=== PATIENT | female | born 1950 | race Caucasian/White ===

== ENCOUNTER 2017-12-17 00:03 | Observation (INO) | payer BC, MEDICARE ==
[2017-12-17] MEDS ORDERED: ASPIRIN 325 MG TAB PO STA (00:31)
--- NOTE | 2017-12-17 00:34 | ED ---
General Adult HPI - General Chief complaint: Chest Pain Stated complaint: htn, chest tightness Time Seen by Provider: 12/17/17 00:11 Source: patient, family, RN notes reviewed, old records reviewed Mode of arrival: ambulatory Limitations: no limitations - History of Present Illness Initial comments: 67-year-old female presenting for evaluation of chest pain. Patient states that that approximately 10 PM which is 2-1/2 hours prior to arrival patient developed chest tightness. This was while patient was at rest. She did report some nausea associated with tightness. No significant pain. No arm or shoulder pain. Patient did not vomit. She did not feel clammy or diaphoretic. She has no known history of CAD. She is a hypertensive diabetic. Patient's parents are , she states her father did have heart disease. She is a nonsmoker. Patient's discomfort and tightness is nearly resolved at the time my evaluation. - Related Data Home Medications Medication Instructions Recorded Confirmed Acetaminophen [Tylenol Arthritis] 1,300 mg PO BID 12/08/15 12/17/17 Albuterol Sulfate [Accuneb] 1.25 mg INHALATION RT-Q6H PRN 12/08/15 12/17/17 Aspirin [Adult Low Dose Aspirin EC] 81 mg PO DAILY 12/08/15 12/17/17 Atorvastatin Calcium [Lipitor] 10 mg PO HS 12/08/15 12/17/17 Biotin 1,000 mcg PO DAILY 12/08/15 12/17/17 Calcium Carbonate [Calcium] 600 mg PO BID 12/08/15 12/17/17 Cholecalciferol [Vitamin D3] 1,000 unit PO DAILY 12/08/15 12/17/17 Desloratadine [Clarinex] 5 mg PO DAILY 12/08/15 12/17/17 Fluticasone Nasal [place] [Flonase 2 spr EA NOSTRIL HS PRN 12/08/15 12/17/17 Nasal [place]] Glucosam/Ancelmo-Msm1/C/Gerardo/Bosw 1 tab PO BID 12/08/15 12/17/17 [Glucosamine-Chondroitin Tablet] Levalbuterol Tartrate [Xopenex Hfa 2 puff INHALATION RT-QID PRN 12/08/15 Inhaler] Losartan Potassium [Cozaar] 100 mg PO DAILY 12/08/15 12/17/17 Magnesium Oxide [Mag-Ox] 250 mg PO BID 12/08/15 12/17/17 Multivitamins, Thera [Multivitamin] 1 tab PO DAILY 12/08/15 12/17/17 [place]-3 Fatty Acids/Fish Oil [Fish 1 cap PO DAILY 12/08/15 12/17/17 Oil 1,000 mg Softgel] Ubidecarenone [Co Q-10] 100 mg PO DAILY 12/08/15 12/17/17 Vitamin B Complex 1 cap PO DAILY 12/08/15 12/17/17 metFORMIN HCL 1,000 mg PO BID 12/08/15 12/17/17 Warfarin [Coumadin] 2.5 mg PO DAILY 12/16/15 12/17/17 Warfarin [Coumadin] 7.5 mg PO ONCE 12/16/15 12/17/17 Previous Rx's Medication Instructions Recorded Docusate [Colace] 100 mg PO BID #60 capsule 12/19/15 HYDROcodone/APAP 7.5-325MG [[place] 1 - 2 each PO Q6H PRN #90 tab 12/19/15 7.5-325] Warfarin [Coumadin] 2.5 mg PO DAILY #1 tab 12/19/15 Allergies Allergy/AdvReac Type Severity Reaction Status Date / Time amlodipine besylate Allergy Severe "slow Verified 12/17/17 00:09 [From Lotrel] heart rate" benazepril HCl [From Lotrel] Allergy Severe "slow Verified 12/17/17 00:09 heart rate" levofloxacin [From Levaquin] Allergy Severe headache, Verified 12/17/17 00:09 palipitation celecoxib [From Celebrex] Allergy Chest Pain Verified 12/17/17 00:09 cephalexin monohydrate Allergy Rash/Hives Verified 12/17/17 00:09 [From Keflex] hydrochlorothiazide Allergy palpitations, Verified 12/17/17 00:09 low potassium NSAIDS (Non-Steroidal Allergy Chest Pain Verified 12/17/17 00:09 Anti-Inflamma Penicillins Allergy Rash/Hives Verified 12/17/17 00:09 acetaminophen [From [place]] AdvReac Severe impaction Verified 12/17/17 00:09 hydrocodone bitartrate AdvReac Severe impaction Verified 12/17/17 00:09 [From [place]] Review of Systems ROS Statement: Those systems with pertinent positive or pertinent negative responses have been documented in the HPI. ROS Other: All systems not noted in ROS Statement are negative. Past Medical History Additional Past Medical History / Comment(s): back pain History of Any Multi-Drug Resistant Organisms: None Reported Additional Past Surgical History / Comment(s): left breast biopsy, valeria carpal tunnel, valeria bunionectomy, valeria knee arthroscopy, rt total knee replacement, rods in back-laminectomy, TOTAL LEFT KNEE Past Psychological History: No Psychological Hx Reported Smoking Status: Never smoker Past Alcohol Use History: None Reported Past Drug Use History: None Reported General Exam Limitations: no limitations General appearance: alert, in no apparent distress Head exam: Present: atraumatic, normocephalic Eye exam: Present: normal appearance, PERRL ENT exam: Present: normal exam Neck exam: Present: normal inspection. Absent: tenderness, meningismus Respiratory exam: Present: normal lung sounds bilaterally. Absent: respiratory distress Cardiovascular Exam: Present: regular rate, normal rhythm GI/Abdominal exam: Present: soft. Absent: distended, tenderness, guarding, rebound Extremities exam: Present: normal inspection, full ROM, other (Distal pulses intact). Absent: tenderness Neurological exam: Present: alert, oriented X3, CN II-XII intact. Absent: motor sensory deficit Psychiatric exam: Present: normal affect, normal mood Skin exam: Present: warm, dry, intact. Absent: cyanosis, diaphoretic Course Vital Signs 12/17/17 00:05 Temperature 98.7 F Pulse Rate 102 H Respiratory 20 Rate Blood Pressure 146/81 O2 Sat by Pulse 99 Oximetry EKG Findings - EKG Comments: EKG Findings:: EKG: Normal sinus rhythm, rate of 91, NE interval 158, QRS duration 86, QTC 4:30, T waves are upright, there is no ST segment elevation or depression Medical Decision Making - Medical Decision Making 67-year-old female presenting with chest tightness and nausea. EKG is normal sinus with no definitive signs of ischemia. History is somewhat concerning and given the patient's risk factors she is placed in observation for serial enzymes and cardiology consultation. Laboratory studies in the emergency department, normal hemoglobin, white blood cell count mildly elevated at 12.4. Electrolytes are within normal limits. Initial troponin is negative. Chest x-ray negative for acute process. Diagnosis: Chest pain - Lab Data Result diagrams: 12/17/17 00:20 12/17/17 00:20 Lab Results 12/17/17 12/17/17 12/17/17 Range/Units 00:20 00:20 00:20 WBC 12.4 H (3.8-10.6) k/uL RBC 4.38 (3.80-5.40) m/uL Hgb 12.6 (11.4-16.0) gm/dL Hct 38.4 (34.0-46.0) % MCV 87.6 (80.0-100.0) fL MCH 28.8 (25.0-35.0) pg MCHC 32.8 (31.0-37.0) g/dL RDW 13.3 (11.5-15.5) % Plt Count 337 (150-450) k/uL Neutrophils % 71 % Lymphocytes % 18 % Monocytes % 6 % Eosinophils % 2 % Basophils % 1 % Neutrophils # 8.8 H (1.3-7.7) k/uL Lymphocytes # 2.2 (1.0-4.8) k/uL Monocytes # 0.7 (0-1.0) k/uL Eosinophils # 0.2 (0-0.7) k/uL Basophils # 0.1 (0-0.2) k/uL PT (9.0-12.0) sec INR (<1.2) APTT (22.0-30.0) sec Sodium 136 L (137-145) mmol/L Potassium 4.2 (3.5-5.1) mmol/L Chloride 100 (98-107) mmol/L Carbon Dioxide 23 (22-30) mmol/L Anion Gap 13 mmol/L BUN 21 H (7-17) mg/dL Creatinine 0.80 (0.52-1.04) mg/dL Est GFR (CKD-EPI)AfAm 90 (>60 ml/min/1.73 sqM) Est GFR (CKD-EPI)NonAf 78 (>60 ml/min/1.73 sqM) Glucose 121 H (74-99) mg/dL Calcium 9.3 (8.4-10.2) mg/dL Magnesium 2.0 (1.6-2.3) mg/dL Total Bilirubin 0.4 (0.2-1.3) mg/dL AST 25 (14-36) U/L ALT 42 (9-52) U/L Alkaline Phosphatase 73 (38-126) U/L Total Creatine Kinase 179 H (30-135) U/L CK-MB (CK-2) 2.9 H* (0.0-2.4) ng/mL CK-MB (CK-2) Rel Index 1.6 Troponin I <0.012 (0.000-0.034) ng/mL NT-Pro-B Natriuret Pep pg/mL Total Protein 6.6 (6.3-8.2) g/dL Albumin 4.6 (3.5-5.0) g/dL Lipase 162 (23-300) U/L 12/17/17 12/17/17 Range/Units 00:20 00:20 WBC (3.8-10.6) k/uL RBC (3.80-5.40) m/uL Hgb (11.4-16.0) gm/dL Hct (34.0-46.0) % MCV (80.0-100.0) fL MCH (25.0-35.0) pg MCHC (31.0-37.0) g/dL RDW (11.5-15.5) % Plt Count (150-450) k/uL Neutrophils % % Lymphocytes % % Monocytes % % Eosinophils % % Basophils % % Neutrophils # (1.3-7.7) k/uL Lymphocytes # (1.0-4.8) k/uL Monocytes # (0-1.0) k/uL Eosinophils # (0-0.7) k/uL Basophils # (0-0.2) k/uL PT 9.7 (9.0-12.0) sec INR 1.0 (<1.2) APTT 24.1 (22.0-30.0) sec Sodium (137-145) mmol/L Potassium (3.5-5.1) mmol/L Chloride (98-107) mmol/L Carbon Dioxide (22-30) mmol/L Anion Gap mmol/L BUN (7-17) mg/dL Creatinine (0.52-1.04) mg/dL Est GFR (CKD-EPI)AfAm (>60 ml/min/1.73 sqM) Est GFR (CKD-EPI)NonAf (>60 ml/min/1.73 sqM) Glucose (74-99) mg/dL Calcium (8.4-10.2) mg/dL Magnesium (1.6-2.3) mg/dL Total Bilirubin (0.2-1.3) mg/dL AST (14-36) U/L ALT (9-52) U/L Alkaline Phosphatase (38-126) U/L Total Creatine Kinase (30-135) U/L CK-MB (CK-2) (0.0-2.4) ng/mL CK-MB (CK-2) Rel Index Troponin I (0.000-0.034) ng/mL NT-Pro-B Natriuret Pep 42 pg/mL Total Protein (6.3-8.2) g/dL Albumin (3.5-5.0) g/dL Lipase (23-300) U/L Disposition Clinical Impression: Chest pain Disposition: ADMITTED IP TO THIS [facility] Condition: Stable Is patient prescribed a controlled substance at d/c from ED?: No Referrals: Silvia Rosado MD [Primary Care Provider] - 1-2 days Decision to Admit Reason: Admit from EC Decision Date: 12/17/17 Decision Time: 01:32
--- NOTE | 2017-12-17 00:42 | XR ---
EXAMINATION TYPE: XR chest 2V DATE OF EXAM: 12/17/2017 COMPARISON: NONE HISTORY: Chest tightness TECHNIQUE: Frontal and lateral views of the chest are obtained. FINDINGS: There is suboptimal inspiration. There is no heart failure nor confluent pneumonic infiltr ate. Costophrenic angles are clear. Bony thorax is intact. There are chest leads. IMPRESSION: No active cardiopulmonary disease.
[2017-12-17 00:47] LABS: Albumin 4.6 g/dL (3.5-5.0); Calcium 9.3 mg/dL (8.4-10.2); Partial Thromboplastin Time 24.1 sec (22.0-30.0); Potassium 4.2 mmol/L (3.5-5.1); Prothrombin Time 9.7 sec (9.0-12.0); Total Bilirubin 0.4 mg/dL (0.2-1.3); Total Protein 6.6 g/dL (6.3-8.2)
[2017-12-17 00:50] LABS: Basophils # (A) 0.1 k/uL (0-0.2); Basophils % (A) 1 %; Eosinophils # (A) 0.2 k/uL (0-0.7); Eosinophils % (A) 2 %; HCT 38.4 % (34.0-46.0); HGB 12.6 gm/dL (11.4-16.0); Lymphocytes # (A) 2.2 k/uL (1.0-4.8); Lymphocytes % (A) 18 %; MCH 28.8 pg (25.0-35.0); MCHC 32.8 g/dL (31.0-37.0); MCV 87.6 fL (80.0-100.0); Monocytes # (A) 0.7 k/uL (0-1.0); Monocytes % (A) 6 %; Neutrophils # (A) 8.8 k/uL (1.3-7.7); Neutrophils % (A) 71 %; Platelet Count 337 k/uL (150-450); RBC 4.38 m/uL (3.80-5.40); RDW 13.3 % (11.5-15.5); WBC 12.4 k/uL (3.8-10.6)
[2017-12-17 00:58] LABS: Creatine Kinase 179 U/L (30-135)
[2017-12-17 01:11] LABS: Troponin I <0.012 ng/mL (0.000-0.034)
[2017-12-17 01:15] LABS: Creatine Kinase MB 2.9 ng/mL (0.0-2.4)
[2017-12-17] MEDS ORDERED: ONDANSETRON 4 MG/2 ML VIAL IVP PRN (01:21)
[2017-12-17] MEDS ORDERED: NALOXONE 0.4 MG/ML 1 ML VIAL IV PRN (01:21)
[2017-12-17 02:18] VITALS: BMI 35.1
[2017-12-17 07:50] LABS: Creatine Kinase 132 U/L (30-135)
[2017-12-17 08:00] LABS: Glucose,Whole Blood 100 mg/dL (75-99)
[2017-12-17 08:02] LABS: Creatine Kinase MB 2.2 ng/mL (0.0-2.4); Troponin I <0.012 ng/mL (0.000-0.034)
[2017-12-17 08:19] VITALS: RESP 18; TEMP 98.3
[2017-12-17] MEDS ORDERED: ASPIRIN 81 MG PO SCH (09:00)
[2017-12-17] MEDS ORDERED: LOSARTAN 50 MG TAB PO SCH (09:00)
--- NOTE | 2017-12-17 09:58 | ECHOF ---
Referral Reason: MEASUREMENTS -------- HEIGHT: 127.0 cm WEIGHT: 78.9 kg BP: IVSd: 1.2 cm (0.6 - 1.1) LVIDd: 3.7 cm (3.9 - 5.3) LVPWd: 1.2 cm (0.6 - 1.1) IVSs: 1.4 cm LVIDs: 3.1 cm LVPWs: 1.1 cm LA Diam: 3.6 cm (2.7 - 3.8) LAESV Index (A-L): 26.13 ml/m Ao Diam: 2.7 cm (2.0 - 3.7) AV Cusp: 1.6 cm (1.5 - 2.6) LA Diam: 3.8 cm (2.7 - 3.8) MV EXCURSION: 14.577 mm (> 18.000) MV EF SLOPE: 78 mm/s (70 - 150) EPSS: 0.3 cm MV E Chuck: 0.52 m/s MV DecT: 203 ms MV A Chuck: 0.83 m/s MV E/A Ratio: 0.63 RAP: 5.00 mmHg RVSP: 26.90 mmHg FINDINGS -------- Sinus rhythm. This was a technically good study. The left ventricular size is normal. There is borderline concentric left ventricular hypertrophy. Overall left ventricular systolic function is normal with, an EF between 55 - 60 %. The right ventricle is normal in size. Normal LA size by volume 22+/-6 ml/m2. The right atrial size is normal. The aortic valve is trileaflet, and appears structurally normal. No aortic stenosis or regurgitation. The mitral valve is normal. Mild mitral regurgitation is present. Mild tricuspid regurgitation present. There is no evidence of pulmonary hypertension. The right v entricular systolic pressure, as measured by Doppler, is 26.90mmHg. There is no pulmonic regurgitation present. The aortic root size is normal. There is no pericardial effusion. CONCLUSIONS -------- 1. Sinus rhythm. 2. The left ventricular size is normal. 3. There is borderline concentric left ventricular hypertrophy. 4. Overall left ventricular systolic function is normal with, an EF between 55 - 60 %. 5. Normal LA size by volume 22+/-6 ml/m2. 6. The aortic valve is trileaflet, and appears structurally normal. No aortic stenosis or regurgitati on. 7. Mild mitral regurgitation is present. 8. Mild tricuspid regurgitation present. 9. There is no evidence of pulmonary hypertension. 10. There is no pulmonic regurgitation present. 11. The aortic root size is normal. 12. There is no pericardial effusion. SOLE SKIVER: Mary Monzon RDCS
[2017-12-17 12:11] LABS: Glucose,Whole Blood 107 mg/dL (75-99)
[2017-12-17 12:56] LABS: Cholesterol 175 mg/dL (<200); HDL Cholesterol 67 mg/dL (40-60); LDL Cholesterol,Calculated 88 mg/dL (0-99); Triglycerides 98 mg/dL (<150)
--- NOTE | 2017-12-17 13:32 | P.CRDCN ---
History of Present Illness Consult date: 12/17/17 Consult reason: chest pain, aortic stenosis History of present illness: Mrs. Holden is a pleasant 67-year-old female past medical history significant for dyslipidemia, hypertension, gastroesophageal reflux disease and diabetes mellitus. She denies history of coronary artery disease. She does not follow with a roll tender for any reason. We've been asked to see her in consultation for complaints of chest pain. Last night while she was sitting down watching television with her she started feeling tightness in her chest. The pain was in the precordial region and radiated straight through to the back. There is no radiation to the arms, neck or jaw. She had associated mild nausea with no vomiting. She denies symptoms of palpitations, dizziness, diaphoresis or shortness of breath. Speech her blood pressure at the time and she had a systolic pressure greater than 200 she decided to present to the hospital for evaluation. The chest tightness started to subside the hospital. And she has had no further symptoms of chest discomfort since admission. EKG reveals sinus mechanism with no acute ST or T-wave abnormalities. Telemetry tracings have been unremarkable. Chest x-ray is negative for an acute cardiopulmonary process. Laboratory data reviewed, WBC 12.4, hemoglobin 12.6, platelets 337, sodium 136, potassium 4.2, magnesium 2.0, cardiac enzymes negative 2, proBNP 42. Current cardiac medication includes losartan 100 mg daily, rosuvastatin 10 mg daily and aspirin 81 mg daily. Review of Systems At the time of my exam: CONSTITUTIONAL: Denies fever. Denies chills. EYES: Denies blurred vision. Denies vision changes. Denies eye pain. EARS, NOSE, MOUTH & THROAT: Denies headache. Denies sore throat. Denies ear pain. CARDIOVASCULAR: Denies chest pain. Denies shortness of breath. Denies orthopnea. Denies PND. Denies palpitations. RESPIRATORY: Denies cough. GASTROINTESTINAL: Denies abdominal pain. Denies diarrhea. Denies constipation. Denies nausea. Denies vomiting. MUSCULOSKELETAL: Denies myalgias. INTEGUMENTARY: Denies pruitis. Denies rash. NEUROLOGIC: Denies numbness. Denies tingling. Denies weakness. PSYCHIATRIC: Denies anxiety. Denies depression. ENDOCRINE: Denies fatigue. Denies weight change. Denies polydipsia. Denies polyurina. GENITOURINARY: Denies burning, hematuria or urgency with micturation. HEMATOLOGIC: Denies history of anemia. Denies bleeding. Past Medical History Past Medical History: GERD/Reflux, Hyperlipidemia, Osteoarthritis (OA) Additional Past Medical History / Comment(s): back pain History of Any Multi-Drug Resistant Organisms: None Reported Past Surgical History: Adenoidectomy, Tonsillectomy Additional Past Surgical History / Comment(s): left breast biopsy, valeria carpal tunnel, valeria bunionectomy, valeria knee arthroscopy, rt total knee replacement, rods in back-laminectomy, TOTAL LEFT KNEE Past Anesthesia/Blood Transfusion Reactions: No Reported Reaction, Motion Sickness Past Psychological History: No Psychological Hx Reported Smoking Status: Never smoker Past Alcohol Use History: None Reported Past Drug Use History: None Reported - Past Family History Father Family Medical History: CVA/TIA, Diabetes Mellitus, Hypertension Mother Family Medical History: Hypertension Medications and Allergies Home Medications Medication Instructions Recorded Confirmed Type Acetaminophen [Tylenol Arthritis] 1,300 mg PO BID 12/08/15 12/17/17 History Aspirin [Adult Low Dose Aspirin EC] 81 mg PO DAILY 12/08/15 12/17/17 History Biotin 1,000 mcg PO DAILY 12/08/15 12/17/17 History Calcium Carbonate [Calcium] 600 mg PO BID 12/08/15 12/17/17 History Cholecalciferol [Vitamin D3] 1,000 unit PO DAILY 12/08/15 12/17/17 History Fluticasone Nasal [place] [Flonase 2 spr EA NOSTRIL HS 12/08/15 12/17/17 History Nasal [place]] Glucosam/Ancelmo-Msm1/C/Gerardo/Bosw 1 tab PO BID 12/08/15 12/17/17 History [Glucosamine-Chondroitin Tablet] Losartan Potassium [Cozaar] 100 mg PO DAILY 12/08/15 12/17/17 History Magnesium Oxide [Mag-Ox] 250 mg PO BID 12/08/15 12/17/17 History Multivitamins, Thera [Multivitamin] 1 tab PO DAILY 12/08/15 12/17/17 History [place]-3 Fatty Acids/Fish Oil [Fish 1 cap PO DAILY 12/08/15 12/17/17 History Oil 1,000 mg Softgel] Ubidecarenone [Co Q-10] 100 mg PO DAILY 12/08/15 12/17/17 History Vitamin B Complex 1 cap PO DAILY 12/08/15 12/17/17 History metFORMIN HCL 1,000 mg PO BID 12/08/15 12/17/17 History Loratadine [Claritin] 10 mg PO DAILY 12/17/17 12/17/17 History Rosuvastatin Calcium [Crestor] 10 mg PO HS 12/17/17 12/17/17 History Allergies Allergy/AdvReac Type Severity Reaction Status Date / Time amlodipine besylate Allergy Severe "slow Verified 12/17/17 08:44 [From Lotrel] heart rate" benazepril HCl [From Lotrel] Allergy Severe "slow Verified 12/17/17 08:44 heart rate" levofloxacin [From Levaquin] Allergy Severe headache, Verified 12/17/17 08:44 palipitation celecoxib [From Celebrex] Allergy Chest Pain Verified 12/17/17 08:44 cephalexin monohydrate Allergy Rash/Hives Verified 12/17/17 08:44 [From Keflex] hydrochlorothiazide Allergy palpitations, Verified 12/17/17 08:44 low potassium NSAIDS (Non-Steroidal Allergy Chest Pain Verified 12/17/17 08:44 Anti-Inflamma Penicillins Allergy Rash/Hives Verified 12/17/17 08:44 acetaminophen [From [place]] AdvReac Severe impaction Verified 12/17/17 08:44 hydrocodone bitartrate AdvReac Severe impaction Verified 12/17/17 08:44 [From [place]] Physical Exam Vitals: Vital Signs Temp Pulse Pulse Resp BP BP Pulse Ox 12/17/17 08:00 98.3 F 69 18 153/68 98 12/17/17 04:00 70 16 130/60 12/17/17 03:08 18 12/17/17 01:47 97.1 F L 98 16 126/71 98 12/17/17 01:39 98.6 F 80 18 192/80 99 12/17/17 00:05 98.7 F 102 H 20 146/81 99 Intake and Output 12/16/17 12/17/17 12/17/17 22:59 06:59 14:59 Intake Total 100 Balance 100 Intake: Oral 100 Other: Voiding Method Toilet Toilet # Voids 2 Weight 78.925 kg Blood pressure 130/60 heart rate 70 afebrile maintaining oxygen saturation on room air GENERAL: This is a 67-year-old female in no apparent distress at the time of my examination. Obese. HEENT: Head is atraumatic, normocephalic. Pupils are equal, round. Sclerae anicteric. Conjunctivae are clear. Mucous membranes of the mouth are moist. Neck is supple. There is no jugular venous distention. No carotid bruit is heard. LUNGS: Clear to auscultation no wheezes, rales or rhonchi. No chest wall tenderness is noted on palpation or with deep breathing. HEART: Regular rate and rhythm without murmurs, rubs or gallops. S1 and S2 heard. ABDOMEN: Soft, nontender. Bowel sounds are heard. No organomegaly noted. EXTREMITIES: No evidence of peripheral edema and no calf tenderness noted. VASCULAR: Radial and dorsalis pedis pulses palpated, no evidence of clubbing. NEUROLOGIC: Patient is awake, alert and oriented x3. Results 12/17/17 00:20 12/17/17 00:20 Cardiac Enzymes 12/17/17 12/17/17 12/17/17 Range/Units 00:20 00:20 06:22 AST 25 (14-36) U/L CK-MB (CK-2) 2.9 H* 2.2 (0.0-2.4) ng/mL Troponin I <0.012 <0.012 (0.000-0.034) ng/mL Coagulation 12/17/17 Range/Units 00:20 PT 9.7 (9.0-12.0) sec APTT 24.1 (22.0-30.0) sec CBC 12/17/17 Range/Units 00:20 WBC 12.4 H (3.8-10.6) k/uL RBC 4.38 (3.80-5.40) m/uL Hgb 12.6 (11.4-16.0) gm/dL Hct 38.4 (34.0-46.0) % Plt Count 337 (150-450) k/uL Comprehensive Metabolic Panel 12/17/17 Range/Units 00:20 Sodium 136 L (137-145) mmol/L Potassium 4.2 (3.5-5.1) mmol/L Chloride 100 (98-107) mmol/L Carbon Dioxide 23 (22-30) mmol/L BUN 21 H (7-17) mg/dL Creatinine 0.80 (0.52-1.04) mg/dL Glucose 121 H (74-99) mg/dL Calcium 9.3 (8.4-10.2) mg/dL AST 25 (14-36) U/L ALT 42 (9-52) U/L Alkaline Phosphatase 73 (38-126) U/L Total Protein 6.6 (6.3-8.2) g/dL Albumin 4.6 (3.5-5.0) g/dL Current Medications Generic Name Dose Route Start Last Admin Trade Name Freq PRN Reason Stop Dose Admin Aspirin 81 mg 12/17/17 09:00 Aspirin PO DAILY [facility] Atorvastatin Calcium 10 mg 12/17/17 21:00 Lipitor PO HS [facility] Losartan Potassium 100 mg 12/17/17 09:00 Cozaar PO DAILY [facility] Naloxone HCl 0.2 mg 12/17/17 01:21 Narcan IV Q2M PRN Opioid Reversal Ondansetron HCl 4 mg 12/17/17 01:21 Zofran IVP Q8HR PRN Nausea And Vomiting Intake and Output 12/16/17 12/17/17 12/17/17 22:59 06:59 14:59 Intake Total 100 Balance 100 Intake: Oral 100 Other: Voiding Method Toilet Toilet # Voids 2 Weight 78.925 kg 12/17/17 00:20 12/17/17 00:20 Assessment and Plan Assessment: ASSESSMENT 1. Chest pain, atypical. An acute coronary event has been ruled out with no EKG evidence of ischemia and negative cardiac enzymes. 2. Hypertension 3. Dyslipidemia 4. Diabetes mellitus 5. Obese. PLAN Obtain 2-D echocardiogram and Doppler study to assess cardiac structure and function. Perform stress echocardiogram to assess for stress-induced cardiac ischemia. Continue aspirin 81 mg daily, losartan 100 mg daily and rosuvastatin 10 mg daily. If stress test is normal she is stable from a cardiac perspective. Follow-up with Dr. Kemp in 2-3 weeks. Thank you kindly for this consultation. Nurse Practitioner note has been reviewed, I agree with a documented findings and plan of care. Patient was seen and examined.
--- NOTE | 2017-12-17 14:03 | ECHOS ---
STRESS ECHOCARDIOGRAM DATE OF SERVICE: 12/17/2017 INDICATIONS: Chest pain. BASELINE HEART RATE: 83 BASELINE BLOOD PRESSURE: 160/81 MAXIMUM HEART RATE: 145 MAXIMUM BLOOD PRESSURE: 215/61 85% MPHR: 132 100% MPHR: 155 METS: 7.5 MAXIMUM STAGE REACHED: 3 TOTAL EXERCISE TIME: 6:15 CLINICAL INFORMATION: Baseline rhythm is sinus mechanism, rate of 83, normal axis, intervals normal electrocardiogram. Baseline blood pressure 160/81 mmHg. Patient exercised on [place] protocol for 6 minutes 15 seconds reaching a peak heart rate of 146 beats per minute which is equal to 94% maximum predicted heart rate. Blood pressure at 215/61 mmHg. Test was terminated due to fatigue. There was no chest pain. Electrocardiograph monitoring revealed no evidence of diagnostic ischemic ST deviation. FINDINGS: Baseline echocardiogram revealed normal wall thickening motion at peak exercise. There was normal wall motion augmentation with no hypokinesis or dyskinesis. CONCLUSION: 1. Average exercise tolerance with normal electrocardiograph response to exercise. 2. Normal stress echocardiogram with no evidence of stress induced ischemia. MMODL / IJN: [id number] /
[2017-12-17 14:21] LABS: Hemoglobin A1C 6.3 % (4.0-6.0)
[2017-12-17] MEDS ORDERED: METOPROLOL TARTRATE 12.5 MG TAB PO SCH (15:45)
[2017-12-17 17:17] VITALS: BP 138/63; PULSE 72
[2017-12-17] MEDS ORDERED: ATORVASTATIN 10 MG TAB PO SCH (21:00)
--- NOTE | 2017-12-17 23:11 | P.DS ---
Providers Date of admission: 12/17/17 01:23 Attending physician: David Woods Consults: 12/17/17 01:22 Consult Physician Routine Consulting Provider: Claudia Knight Consult Reason/Comments: CP Do you want consulting provider notified?: Yes Primary care physician: Silvia Rosado [facility] Course: please refer to H&P from today for detailed discharged summary Patient Condition at Discharge: Stable Plan - Discharge Summary Discharge Rx Participant: No New Discharge Prescriptions: New Atorvastatin [Lipitor] 10 mg PO HS tab Metoprolol Tartrate [Lopressor] 12.5 mg PO DAILY #30 tab Continue Fluticasone Nasal Gilliam [Flonase Nasal Gilliam] 2 spr EA NOSTRIL HS Aspirin [Adult Low Dose Aspirin EC] 81 mg PO DAILY Acetaminophen [Tylenol Arthritis] 1,300 mg PO BID Losartan Potassium [Cozaar] 100 mg PO DAILY Ubidecarenone [Co Q-10] 100 mg PO DAILY Cholecalciferol [Vitamin D3] 1,000 unit PO DAILY Magnesium Oxide [Mag-Ox] 250 mg PO BID Calcium Carbonate [Calcium] 600 mg PO BID Vitamin B Complex 1 cap PO DAILY Glucosam/Ancelmo-Msm1/C/Gerardo/Bosw [Glucosamine-Chondroitin Tablet] 1 tab PO BID Multivitamins, Thera [Multivitamin (formulary)] 1 tab PO DAILY Biotin 1,000 mcg PO DAILY [place]-3 Fatty Acids/Fish Oil [Fish Oil 1,000 mg Softgel] 1 cap PO DAILY metFORMIN HCL 1,000 mg PO BID Rosuvastatin Calcium [Crestor] 10 mg PO HS Loratadine [Claritin] 10 mg PO DAILY Discharge Medication List Acetaminophen [Tylenol Arthritis] 1,300 mg PO BID 12/08/15 [History] Aspirin [Adult Low Dose Aspirin EC] 81 mg PO DAILY 12/08/15 [History] Biotin 1,000 mcg PO DAILY 12/08/15 [History] Calcium Carbonate [Calcium] 600 mg PO BID 12/08/15 [History] Cholecalciferol [Vitamin D3] 1,000 unit PO DAILY 12/08/15 [History] Fluticasone Nasal Gilliam [Flonase Nasal Gilliam] 2 spr EA NOSTRIL HS 12/08/15 [ History] Glucosam/Ancelmo-Msm1/C/Gerardo/Bosw [Glucosamine-Chondroitin Tablet] 1 tab PO BID 11/19 [History] Losartan Potassium [Cozaar] 100 mg PO DAILY 12/08/15 [History] Magnesium Oxide [Mag-Ox] 250 mg PO BID 12/08/15 [History] Multivitamins, Thera [Multivitamin (formulary)] 1 tab PO DAILY 12/08/15 [History ] [place]-3 Fatty Acids/Fish Oil [Fish Oil 1,000 mg Softgel] 1 cap PO DAILY [History] Ubidecarenone [Co Q-10] 100 mg PO DAILY 12/08/15 [History] Vitamin B Complex 1 cap PO DAILY 12/08/15 [History] metFORMIN HCL 1,000 mg PO BID 12/08/15 [History] Atorvastatin [Lipitor] 10 mg PO HS tab 12/17/17 [Rx] Loratadine [Claritin] 10 mg PO DAILY 12/17/17 [History] Metoprolol Tartrate [Lopressor] 12.5 mg PO DAILY #30 tab 12/17/17 [Rx] Rosuvastatin Calcium [Crestor] 10 mg PO HS 12/17/17 [History] Follow up Appointment(s)/Referral(s): Raisa Kemp MD [STAFF PHYSICIAN] - 01/10/18 9:15 am Silvia Rosado MD [Primary Care Provider] - 1-2 days (we recopmmendto check your blood test with your doctor, including CBC and BMP, and to check your Blood pressure closely with your doctor ) Discharge Disposition: HOME SELF-CARE
--- NOTE | 2017-12-17 23:24 | P.HPIM ---
History of Present Illness this is pleasant 67 yo F with pmh of HTN ,GERD, HLP and OA who presents with one day of chest pressure associated with numbness in her neck area of one day duration , pt checked her BP at home as she used to work as a nurse and found to have SBP of 240 as per pt , in ED pt BP was 192/80 , pt was evaluated by sales counselor who did a stress echo and which was normal with no evidence for ischemia , sales counselor cleared pt for discharge, when i saw pt she states she is back to her normal and usual state, no more chest pressure , or chest pain , no dyspnea , no fever, and no more numbness , no other s/s she had mild leukocytosis of 121k and mild hyponatremia at 136, i spoke with Dr. Rosado upon pt request and discussed the pt case with her and recommended to repeat blood test and to f/u Na and WBC and she kindly took note of that , pt states she wants to make appointment with and sales counselor by herself and she does not want help from hte medical staff of the hospital I rechecked her BP and was 167/76 and HR 75 , which is stage 2 HTN , i recommended to start pt on Lopressor at 25 mg but pt preferred to start 12.5 mg dialy and she will recheck her BP and f/u with her pcp , as she can check her BP at home , i advised pt if her BP go more than 180 to come to ED and she verbalized understanding and acceptance pt was found stable and can be dc home but she need f/u as oupt Genera; AAOx3, no distress CVS: s1s2, RRR, no murmur abd : soft , NT, ND, +BS lungs; B/L CTA Ext: no edema Past Medical History Past Medical History: GERD/Reflux, Hyperlipidemia, Osteoarthritis (OA) Additional Past Medical History / Comment(s): back pain History of Any Multi-Drug Resistant Organisms: None Reported Past Surgical History: Adenoidectomy, Tonsillectomy Additional Past Surgical History / Comment(s): left breast biopsy, valeria carpal tunnel, valeria bunionectomy, valeria knee arthroscopy, rt total knee replacement, rods in back-laminectomy, TOTAL LEFT KNEE Past Anesthesia/Blood Transfusion Reactions: No Reported Reaction, Motion Sickness Past Psychological History: No Psychological Hx Reported Smoking Status: Never smoker Past Alcohol Use History: None Reported Past Drug Use History: None Reported - Past Family History Father Family Medical History: CVA/TIA, Diabetes Mellitus, Hypertension Mother Family Medical History: Hypertension Medications and Allergies Home Medications Medication Instructions Recorded Confirmed Type Acetaminophen [Tylenol Arthritis] 1,300 mg PO BID 12/08/15 12/17/17 History Aspirin [Adult Low Dose Aspirin EC] 81 mg PO DAILY 12/08/15 12/17/17 History Biotin 1,000 mcg PO DAILY 12/08/15 12/17/17 History Calcium Carbonate [Calcium] 600 mg PO BID 12/08/15 12/17/17 History Cholecalciferol [Vitamin D3] 1,000 unit PO DAILY 12/08/15 12/17/17 History Fluticasone Nasal [place] [Flonase 2 spr EA NOSTRIL HS 12/08/15 12/17/17 History Nasal [place]] Glucosam/Ancelmo-Msm1/C/Gerardo/Bosw 1 tab PO BID 12/08/15 12/17/17 History [Glucosamine-Chondroitin Tablet] Losartan Potassium [Cozaar] 100 mg PO DAILY 12/08/15 12/17/17 History Magnesium Oxide [Mag-Ox] 250 mg PO BID 12/08/15 12/17/17 History Multivitamins, Thera [Multivitamin 1 tab PO DAILY 12/08/15 12/17/17 History (formulary)] [place]-3 Fatty Acids/Fish Oil [Fish 1 cap PO DAILY 12/08/15 12/17/17 History Oil 1,000 mg Softgel] Ubidecarenone [Co Q-10] 100 mg PO DAILY 12/08/15 12/17/17 History Vitamin B Complex 1 cap PO DAILY 12/08/15 12/17/17 History metFORMIN HCL 1,000 mg PO BID 12/08/15 12/17/17 History Atorvastatin [Lipitor] 10 mg PO HS tab 12/17/17 Rx Loratadine [Claritin] 10 mg PO DAILY 12/17/17 12/17/17 History Metoprolol Tartrate [Lopressor] 12.5 mg PO DAILY #30 tab 12/17/17 Rx Rosuvastatin Calcium [Crestor] 10 mg PO HS 12/17/17 12/17/17 History Allergies Allergy/AdvReac Type Severity Reaction Status Date / Time amlodipine besylate Allergy Severe "slow Verified 12/17/17 08:44 [From Lotrel] heart rate" benazepril HCl [From Lotrel] Allergy Severe "slow Verified 12/17/17 08:44 heart rate" levofloxacin [From Levaquin] Allergy Severe headache, Verified 12/17/17 08:44 palipitation celecoxib [From Celebrex] Allergy Chest Pain Verified 12/17/17 08:44 cephalexin monohydrate Allergy Rash/Hives Verified 12/17/17 08:44 [From Keflex] hydrochlorothiazide Allergy palpitations, Verified 12/17/17 08:44 low potassium NSAIDS (Non-Steroidal Allergy Chest Pain Verified 12/17/17 08:44 Anti-Inflamma Penicillins Allergy Rash/Hives Verified 12/17/17 08:44 acetaminophen [From [employer]] AdvReac Severe impaction Verified 12/17/17 08:44 hydrocodone bitartrate AdvReac Severe impaction Verified 12/17/17 08:44 [From [employer]] Physical Exam Vitals: Vital Signs Temp Pulse Pulse Resp BP BP BP 12/17/17 17:16 72 138/63 12/17/17 16:00 79 18 12/17/17 12:00 98.3 F 79 18 157/80 12/17/17 08:00 98.3 F 69 18 153/68 12/17/17 04:00 70 16 130/60 12/17/17 03:08 18 12/17/17 01:47 97.1 F L 98 16 126/71 12/17/17 01:39 98.6 F 80 18 192/80 12/17/17 00:05 98.7 F 102 H 20 146/81 Pulse Ox 12/17/17 17:16 12/17/17 16:00 12/17/17 12:00 98 12/17/17 08:00 98 12/17/17 04:00 12/17/17 03:08 12/17/17 01:47 98 12/17/17 01:39 99 12/17/17 00:05 99 Intake and Output 12/17/17 12/17/17 12/18/17 14:59 22:59 06:59 Intake Total 240 Balance 240 Intake: Oral 240 Other: Voiding Method Toilet Toilet # Voids 4 Weight 78.925 kg Results CBC & Chem 7: 12/17/17 00:20 12/17/17 00:20 Labs: Abnormal Lab Results - Last 24 Hours (Table) 12/17/17 12/17/17 12/17/17 Range/Units 00:20 00:20 00:20 WBC 12.4 H (3.8-10.6) k/uL Neutrophils # 8.8 H (1.3-7.7) k/uL Sodium 136 L (137-145) mmol/L BUN 21 H (7-17) mg/dL Glucose 121 H (74-99) mg/dL POC Glucose (mg/dL) (75-99) mg/dL Hemoglobin A1c (4.0-6.0) % Total Creatine Kinase 179 H (30-135) U/L CK-MB (CK-2) 2.9 H* (0.0-2.4) ng/mL HDL Cholesterol (40-60) mg/dL 12/17/17 12/17/17 12/17/17 Range/Units 06:22 06:22 07:57 WBC (3.8-10.6) k/uL Neutrophils # (1.3-7.7) k/uL Sodium (137-145) mmol/L BUN (7-17) mg/dL Glucose (74-99) mg/dL POC Glucose (mg/dL) 100 H (75-99) mg/dL Hemoglobin A1c 6.3 H (4.0-6.0) % Total Creatine Kinase (30-135) U/L CK-MB (CK-2) (0.0-2.4) ng/mL HDL Cholesterol 67 H (40-60) mg/dL 12/17/17 Range/Units 12:09 WBC (3.8-10.6) k/uL Neutrophils # (1.3-7.7) k/uL Sodium (137-145) mmol/L BUN (7-17) mg/dL Glucose (74-99) mg/dL POC Glucose (mg/dL) 107 H (75-99) mg/dL Hemoglobin A1c (4.0-6.0) % Total Creatine Kinase (30-135) U/L CK-MB (CK-2) (0.0-2.4) ng/mL HDL Cholesterol (40-60) mg/dL Thrombosis Risk Factor Assmnt - Choose All That Apply Each Risk Factor Represents 2 Points: Age 61-74 years Thrombosis Risk Factor Assessment Total Risk Factor Score: 2 Thrombosis Risk Factor Assessment Level: Low Risk
== END 2017-12-17 17:35 | disposition home or self-care (01) ==
LOC: EC 00:03 → 3SUR 01:23 → 3OBS 07:14
PROVIDERS: ADMIT Hospitalist; ATTEND Hospitalist
DX: R07.89 Other chest pain (principal); R11.0 Nausea; R20.0 Anesthesia of skin; I10 Essential (primary) hypertension; D72.829 Elevated white blood cell count, unspecified; E87.1 Hypo-osmolality and hyponatremia; E78.5 Hyperlipidemia, unspecified; E11.9 Type 2 diabetes mellitus without complications; I35.0 Nonrheumatic aortic (valve) stenosis; K21.9 Gastro-esophageal reflux disease without esophagitis; M19.90 Unspecified osteoarthritis, unspecified site; E66.9 Obesity, unspecified; Z68.35 Body mass index [BMI] 35.0-35.9, adult; M54.9 Dorsalgia, unspecified; Z79.82 Long term (current) use of aspirin; Z79.01 Long term (current) use of anticoagulants; Z79.84 Long term (current) use of oral hypoglycemic drugs; Z79.51 Long term (current) use of inhaled steroids; Z79.899 Other long term (current) drug therapy; Z88.6 Allergy status to analgesic agent; Z88.1 Allergy status to other antibiotic agents; Z88.5 Allergy status to narcotic agent; Z88.0 Allergy status to penicillin; Z88.8 Allergy status to other drugs, medicaments and biological substances; Z83.3 Family history of diabetes mellitus; Z82.49 Family history of ischemic heart disease and other diseases of the circulatory system; Z82.3 Family history of stroke; Z96.651 Presence of right artificial knee joint
CPT/HCPCS: 99285 ×2; 36415; 93005; 93306; 93351; 83880; 80061; 80053; 82550; 82553; 83690; 83735; 84484; 85025; 85610; 85730; 83036; 71046; G0378

== ENCOUNTER → 2018-09-12 | Outpatient (CLI) | payer MEDICARE ==
--- NOTE | 2018-09-12 12:39 | CONS ---
CONSULTATION A 68-year-old lady who has been evaluated in the [facility] for her sleep-related problems and tiredness during the day. HISTORY OF PRESENT ILLNESS/SLEEP-WAKE EVALUATION: Patient's usual sleep schedule from 10 p.m. to 7 a.m. basically 7 days a week. Sometimes, she has problems with falling asleep related to her restless leg symptoms and back problems. She does watch TV in bedroom. She usually sleeps in different position including back and site. According to her , she has mild of snoring and she may wake up from sleep with restless legs, rare episodes of palpitation, once at night she may need to go to bathroom. No history of hypnagogic hallucinations, sleep paralysis or cataplexy. In the morning, patient wakes up, tired worries about her sleep, has episodes of irritability and anxiety. [place] Sleepiness Scale is 10. PAST MEDICAL HISTORY: Positive for hypertension, diabetes, hyperlipidemia, anxiety, sinus problems, eczema. PAST SURGICAL HISTORY: Tubal ligation, partial hysterectomy, cholecystectomy and surgery for carpal tunnel syndrome, status post bilateral knee replacements. MEDICATIONS: Losartan, loratadine, metformin, rosuvastatin, metoprolol, baby aspirin, Tylenol, diazepam, Nasacort, gabapentin, vitamin supplements including D3 and glucosamine. SOCIAL HISTORY: Negative for smoking. Alcohol consumption very rarely. FAMILY HISTORY: Hypertension, hyperlipidemia, stroke, arthritis, sleep apnea, bronchitis, acid reflux, diabetes, anemia. REVIEW OF SYSTEMS: Some difficulties to initiate sleep secondary to restless legs, awakenings from sleep, tiredness and sleepiness during the day. Increasing weight. PHYSICAL EXAM: lady without distress. BP 153/68, HR 69, RR 16, height 4 foot 10 inches, weight 183 pounds. Body mass index 38.2, temperature 97.7, oxygen saturation at room air 98%. OROPHARYNX: Low position of soft palate, Mallampati III, deep total, slight restriction of nasal breathing. ABDOMEN: Obese. Neck Supple, no JVD. Thyroid is not palpable. LUNGS Clear to percussion and to auscultation. Good air exchange. No wheezing or rhonchi. HEART S1, S2 regular. No murmurs, gallops, or rubs. EXTREMITIES No clubbing or cyanosis. TECHNICAL APPLICATIONS SCIENTIST Awake, alert, and oriented X3. Cranial nerves 2 to 7 intact. There is no fasciculation or atrophy. noted. No focal deficits observed. IMPRESSION: 1. Snoring. Low position of soft palate, awakenings from sleep with dry mouth, sleepiness. [place] Sleepiness Scale is 10. Increasing weight, possible obstructive sleep apnea-hypopnea syndrome. 2. Obesity, body mass index 38.2. 3. Restless legs syndrome. Improved on gabapentin. 4. Back problems, back pain. 5. History of sinusitis. 6. Hypertension. 7. Diabetes mellitus. 8. Hyperlipidemia. 9. Anxiety. 10.History of eczema. 11.Status post bilateral knee replacement. 12.Status post tubal ligation. 13.Status post partial hysterectomy. 14.Status post cholecystectomy. 15.Status post bilateral carpal tunnel syndrome, surgical treatment. PLAN: 1. Polysomnography for evaluation of patient's breathing during sleep. 2. CPAP/BiPAP titration if sleep study confirms obstructive sleep apnea-hypopnea syndrome. 3. Preferable position during sleep on the side. 4. No driving if patient feels any sleepiness. 5. I will see patient for follow up visit to explain results of testing and following plan. Thank you very much for referring this patient for consultation. Sincerely, Jose D Vargas MD, PhD, FAASM Diplomat of [employer] [employer] Compensation Intern of [facility] [place] MMODL / CAITLYNN: [id number] /
== END | disposition home or self-care (01) ==
LOC: SLEEP 10:49
PROVIDERS: ATTEND Internal Medicine
DX: R06.83 Snoring (principal); E66.9 Obesity, unspecified; G25.81 Restless legs syndrome; M54.9 Dorsalgia, unspecified; I10 Essential (primary) hypertension; E11.9 Type 2 diabetes mellitus without complications; E78.5 Hyperlipidemia, unspecified; F41.9 Anxiety disorder, unspecified; Z87.2 Personal history of diseases of the skin and subcutaneous tissue; Z96.653 Presence of artificial knee joint, bilateral; Z68.38 Body mass index [BMI] 38.0-38.9, adult; Z98.51 Tubal ligation status; Z90.711 Acquired absence of uterus with remaining cervical stump; Z90.49 Acquired absence of other specified parts of digestive tract; Z98.890 Other specified postprocedural states; Z79.84 Long term (current) use of oral hypoglycemic drugs; Z79.82 Long term (current) use of aspirin; Z79.899 Other long term (current) drug therapy
CPT/HCPCS: 99211